=== PATIENT | female | born 1960 | race Caucasian/White ===

== ENCOUNTER → 2016-07-05 | Outpatient (CLI) | payer OTHER ==
[~2016-07-05] MED LIST: ACET-1175 PO; CALC-354; CIPR-255 PO; CYAN10002 IM; CYAN100020 PO; CYM/30 PO; DIAZ10TA3 PO; ERGO500037 PO; HYDR2TAB48 PO; LEVO200T6 PO; LISI10TA PO; MELA1TAB54 PO; METH-446 PO; NORCO PO; ONDA4TAB4 PO; PEDICHW44 PO; RANI150T3 PO; ULT/50 PO
[2016-07-05 17:48] LABS: BASO % 0.8 %; BASO ABS # 0.05 K/uL (0-0.2); COMPLETE YES; EOS % 1.6 %; HEMATOCRIT 31.8 % (37-47); IG% 0.3 %; LYMPH ABS # 1.91 K/uL (1.2-3.4); MEAN CELL VOLUME 79.5 fL (80-100); MEAN CORPUSCULAR HEMOGLOBIN 24.5 pg (25-34); MEAN CORPUSCULAR HGB CONC 30.8 g/dl (32-36); MEAN PLATELET VOLUME 9.3 fL (7.4-10.4); MONO % 6.8 %; NEUT % 59.5 %; PLATELET COUNT 358 K/uL (130-400); WHITE BLOOD COUNT 6.16 K/uL (4.8-10.8)
[2016-07-05 18:04] LABS: BLOOD UREA NITROGEN 14 mg/dl (7-18); CREATININE 0.86 mg/dl (0.60-1.20); GLUCOSE 89 mg/dl (70-99)
[2016-07-05 18:05] LABS: ALT/SGPT 39 U/L (12-78); AST/SGOT 18 U/L (15-37); BUN/CREATININE RATIO 16.5 (10-20); CALCIUM 8.9 mg/dl (8.5-10.1); CARBON DIOXIDE 21 mmol/L (21-32); CHLORIDE 104 mmol/L (98-107); POTASSIUM 4.2 mmol/L (3.5-5.1); SODIUM 136 mmol/L (136-145)
[2016-07-05 18:08] LABS: ALB/GLOB RATIO 1.1 (0.9-2); ALKALINE PHOSPHATASE 113 U/L (45-117); TOTAL IRON BINDING CAPACITY 460 mcg/dl (250-450)
[2016-07-09 03:29] LABS: URCREATININE 86.7 MG/DL (>/= 20)
--- NOTE | 2016-07-12 12:20 | CODING QUERY MEDICAL NECESSITY ---
SUPPORTING DIAGNOSIS NEEDED A supporting diagnosis is required for the test/procedure performed on this patient in order for us to be reimbursed by the patient's insurance. Please provide a supporting diagnosis for the following test/procedure listed below next to the test name along with your signature. *If there is no additional diagnosis for this patient that would support the following test/procedure please document that below next to the test/procedure. Test(s)/Procedure(s) that require a supporting diagnosis: * URINE DRUG SCREEN DIAGNOSIS: * DOS: 07/05/16 Provider Signature: Date: Thank you [address] Once completed, please kindly fax back to [phone] For questions please call [phone]
== END | disposition home or self-care (01) ==
LOC: C.LABMFLN 10:17
PROVIDERS: ATTEND Family Medicine
DX: G89.29 Other chronic pain (principal); F11.90 Opioid use, unspecified, uncomplicated; R42 Dizziness and giddiness; E03.9 Hypothyroidism, unspecified; E53.8 Deficiency of other specified B group vitamins; D64.9 Anemia, unspecified; R55 Syncope and collapse; E55.9 Vitamin D deficiency, unspecified; E87.6 Hypokalemia; R39.9 Unspecified symptoms and signs involving the genitourinary system